=== PATIENT | female | born 1980 | race Caucasian/White ===

== ENCOUNTER 2017-09-02 16:50 | Emergency (ER) | payer MEDICAID ==
[~2017-09-02] VITALS: Ht 167.6 cm; Wt 73.5 kg
[2017-09-02 17:00] VITALS: BP_SYST 140
--- NOTE | 2017-09-02 17:05 | NUR ---
Patient to ER bed 6 to gown for evaluation. Side rails up. Report given to Jermain SAHNI.
--- NOTE | 2017-09-02 17:07 | NUR ---
ER at bedside examining patient.
--- NOTE | 2017-09-02 17:10 | NUR ---
Pt presents to ER c/o LL abd pain that began at 0400. Pt states she has experienced N/V. Pt states she has an IUD in place, has light spotting, & is 5 days late for her menstrual period when she is "usually regular". Pt denies any significant medical history or medication use. Pt is AOX4, no acute respiratory distress noted.
--- NOTE | 2017-09-02 17:15 | NUR ---
Lab at bedside drawing blood.
--- NOTE | 2017-09-02 17:20 | NUR ---
Urine collected and sent to lab. Urine Hcg done and results are neg.
[2017-09-02 17:29] LABS: BASOPHILS % (AUTO) 0.3 % (0.0-2.0); EOSINOPHILS % (AUTO) 0.3 % (0.0-4.0); HEMATOCRIT 45.7 % (36-48); HEMOGLOBIN 14.9 g/dL (12.0-16.0); LYMPHOCYTES # (AUTO) 1.7 K/uL (1.0-5.5); LYMPHOCYTES % (AUTO) 19.5 % (20.5-51.5); MEAN CORPUSCULAR HEMOGLOBIN 30 pg (27-31); MEAN CORPUSCULAR HGB CONC 33 % (32-36); MEAN CORPUSCULAR VOLUME 92 fL (79.0-98.0); MONOCYTES # (AUTO) 0.4 K/uL (0.0-1.0); MONOCYTES % (AUTO) 5.1 % (1.7-9.3); NEUTROPHILS # (AUTO) 6.6 K/uL (1.8-7.7); NEUTROPHILS % (AUTO) 74.8 % (40.0-70.0); PLATELET COUNT (AUTO) 352 K/uL (130-430); RED BLOOD CELL COUNT(AUTO) 4.97 MIL/uL (4.2-6.2); RED CELL DISTRIBUTION WIDTH 11.2 % (9.0-15.0); WHITE BLOOD COUNT (AUTO) 8.7 K/uL (4.8-10.8)
--- NOTE | 2017-09-02 17:29 | NUR ---
Patient transported to radiology via gurney, accompanied by rad staff.
[2017-09-02 17:31] LABS: BILIRUBIN,URINE 1+ (NEGATIVE); BLOOD, URINE 2+ (NEGATIVE); CLARITY/URINE SL HAZY (CLEAR); GLUCOSE,URINE NEGATIVE (NEGATIVE); KETONES,URINE 3+ (NEGATIVE); LEUKOCYTE ESTERASE ,URINE NEGATIVE (NEGATIVE); NITRITE, URINE NEGATIVE (NEGATIVE); PH,URINE 5.5 (5.0-8.0); PROTEIN URINE TRACE (NEGATIVE); UROBILINOGEN,URINE 0.2 (0.2-1.0)
[2017-09-02 17:33] LABS: COLOR,URINE YELLOW (YELLOW)
[2017-09-02 17:45] LABS: CALCIUM 9.6 mg/dL (8.4-11.0); CREATININE 0.78 mg/dL (0.55-1.30); POTASSIUM 3.4 mmol/L (3.5-5.1)
--- NOTE | 2017-09-02 17:45 | NUR ---
Returned from radiology, back to [facility].
[2017-09-02 17:50] LABS: ALBUMIN 4.8 g/dL (3.4-4.8); PROTHROMBIN TIME 10.4 SECS (9.5-12.5); TOTAL BILIRUBIN 1.3 mg/dL (0.0-1.0)
[2017-09-02 18:00] LABS: BACTERIA,URINE FEW /HPF (None Seen); RBC,URINE 0-3 /HPF (0-3); WBC,URINE 0-3 /HPF (0-3)
[2017-09-02 18:04] LABS: MUCUS,URINE 3+ /LPF (None Seen)
--- NOTE | 2017-09-02 18:10 | NUR ---
ER at bedside providing pt with update on CT results. Opportunity for questions / concerns provided. Pt verbalized understanding of condition.
[2017-09-02 18:33] VITALS: BP_SYST 140
--- NOTE | 2017-09-02 18:33 | NUR ---
Patient given written and verbal discharge instructions and verbalizes understanding. ER MD discussed with patient the results and treatment provided. Patient in stable condition. ID arm band removed. Rx of Zofran, Ibuprofen, & [place] given. Patient educated on pain management and to follow up with PMD. Pain Scale 3/10. Opportunity for questions provided and answered.
== END 2017-09-02 18:33 | disposition home or self-care (01) ==
LOC: SED 16:50
DX: R10.32 Left lower quadrant pain (principal)
CPT/HCPCS: 36415; 80053; 81000-TC; 81025; 82150-TC; 83690-TC; 84703; 85025; 85610-TC; 85730-TC; 99285

== ENCOUNTER 2017-09-17 17:34 | Emergency (ER) | payer MEDICAID ==
[~2017-09-17] VITALS: Ht 167.6 cm; Wt 73.5 kg
[2017-09-17 17:51] VITALS: BP_SYST 144
[2017-09-17 18:25] LABS: BASOPHILS % (AUTO) 0.4 % (0.0-2.0); EOSINOPHILS # (AUTO) 0.1 K/uL (0.0-0.4); EOSINOPHILS % (AUTO) 1.5 % (0.0-4.0); HEMATOCRIT 43.7 % (36-48); HEMOGLOBIN 14.6 g/dL (12.0-16.0); LYMPHOCYTES % (AUTO) 30.4 % (20.5-51.5); MEAN CORPUSCULAR HEMOGLOBIN 31 pg (27-31); MEAN CORPUSCULAR HGB CONC 33 % (32-36); MEAN CORPUSCULAR VOLUME 92 fL (79.0-98.0); MONOCYTES # (AUTO) 0.5 K/uL (0.0-1.0); MONOCYTES % (AUTO) 7.2 % (1.7-9.3); NEUTROPHILS # (AUTO) 3.9 K/uL (1.8-7.7); NEUTROPHILS % (AUTO) 60.5 % (40.0-70.0); PLATELET COUNT (AUTO) 354 K/uL (130-430); RED BLOOD CELL COUNT(AUTO) 4.78 MIL/uL (4.2-6.2); RED CELL DISTRIBUTION WIDTH 11.2 % (9.0-15.0); WHITE BLOOD COUNT (AUTO) 6.5 K/uL (4.8-10.8)
[2017-09-17 18:37] LABS: BILIRUBIN,URINE 1+ (NEGATIVE); CLARITY/URINE SL HAZY (CLEAR); COLOR,URINE YELLOW (YELLOW); GLUCOSE,URINE NEGATIVE (NEGATIVE); KETONES,URINE 1+ (NEGATIVE); LEUKOCYTE ESTERASE ,URINE NEGATIVE (NEGATIVE); NITRITE, URINE NEGATIVE (NEGATIVE); PROTEIN URINE TRACE (NEGATIVE); UROBILINOGEN,URINE 0.2 (0.2-1.0)
[2017-09-17 18:41] LABS: BLOOD, URINE TRACE (NEGATIVE)
[2017-09-17 18:45] LABS: CALCIUM 9.5 mg/dL (8.4-11.0); CREATININE 0.83 mg/dL (0.55-1.30); POTASSIUM 3.3 mmol/L (3.5-5.1)
[2017-09-17 18:50] LABS: ALBUMIN 4.5 g/dL (3.4-4.8); TOTAL BILIRUBIN 0.9 mg/dL (0.0-1.0)
[2017-09-17 19:03] LABS: BACTERIA,URINE FEW /HPF (None Seen); CALCIUM OXALATE CRYSTALS,UR 1+ /HPF (None Seen); MUCUS,URINE 2+ /LPF (None Seen); WBC,URINE 0-3 /HPF (0-3)
[2017-09-17 20:42] VITALS: BP_SYST 144
== END 2017-09-17 20:42 | disposition home or self-care (01) ==
LOC: SED 17:34
DX: R10.30 Lower abdominal pain, unspecified (principal); R74.0 Nonspecific elevation of levels of transaminase and lactic acid dehydrogenase [LDH]; R19.7 Diarrhea, unspecified; R03.0 Elevated blood-pressure reading, without diagnosis of hypertension
CPT/HCPCS: 36415; 76830-TC; 76857; 80053; 81000-TC; 81025; 83690-TC; 85025; 99285

== ENCOUNTER 2017-10-30 13:52 | Emergency (ER) | payer MEDICAID ==
[~2017-10-30] VITALS: Ht 167.6 cm; Wt 81.6 kg
[2017-10-30 13:52] VITALS: BP_SYST 158
[2017-10-30] MEDS ORDERED: DIPH-TET-PERTUS Vaccine 0.5 ML VIAL (ADACEL) I.M. ONE (14:15)
[2017-10-30] MEDS ORDERED: IBUPROFEN 800 MG TABLET PO ONE (14:15)
[2017-10-30 14:30] VITALS: BP_SYST 142
== END 2017-10-30 14:30 | disposition home or self-care (01) ==
LOC: SED 13:52
DX: Z23 Encounter for immunization (principal); R03.0 Elevated blood-pressure reading, without diagnosis of hypertension
CPT/HCPCS: 90715; 99283

== ENCOUNTER 2017-11-26 09:21 | Emergency (ER) | payer MEDICAID ==
[~2017-11-26] VITALS: Ht 167.6 cm; Wt 63.5 kg
[2017-11-26 09:21] VITALS: BP_SYST 129
[2017-11-26] MEDS ORDERED: NACL 0.9% 1,000 ML IV ONE (10:00)
[2017-11-26 10:39] LABS: BASOPHILS # (AUTO) 0.2 K/uL (0.0-0.2); BASOPHILS % (AUTO) 1.4 % (0.0-2.0); EOSINOPHILS # (AUTO) 0.1 K/uL (0.0-0.4); EOSINOPHILS % (AUTO) 0.8 % (0.0-4.0); HEMATOCRIT 43.1 % (36-48); HEMOGLOBIN 14.2 g/dL (12.0-16.0); LYMPHOCYTES # (AUTO) 1.5 K/uL (1.0-5.5); LYMPHOCYTES % (AUTO) 12.3 % (20.5-51.5); MEAN CORPUSCULAR HEMOGLOBIN 30 pg (27-31); MEAN CORPUSCULAR HGB CONC 33 % (32-36); MEAN CORPUSCULAR VOLUME 91 fL (79.0-98.0); MONOCYTES # (AUTO) 0.8 K/uL (0.0-1.0); MONOCYTES % (AUTO) 6.6 % (1.7-9.3); NEUTROPHILS # (AUTO) 9.7 K/uL (1.8-7.7); NEUTROPHILS % (AUTO) 78.9 % (40.0-70.0); PLATELET COUNT (AUTO) 154 K/uL (130-430); RED BLOOD CELL COUNT(AUTO) 4.72 MIL/uL (4.2-6.2); RED CELL DISTRIBUTION WIDTH 11.4 % (9.0-15.0); WHITE BLOOD COUNT (AUTO) 12.3 K/uL (4.8-10.8)
[2017-11-26 10:42] LABS: BILIRUBIN,URINE NEGATIVE (NEGATIVE); BLOOD, URINE NEGATIVE (NEGATIVE); CLARITY/URINE CLEAR (CLEAR); COLOR,URINE YELLOW (YELLOW); GLUCOSE,URINE NEGATIVE (NEGATIVE); KETONES,URINE NEGATIVE (NEGATIVE); LEUKOCYTE ESTERASE ,URINE NEGATIVE (NEGATIVE); NITRITE, URINE NEGATIVE (NEGATIVE); PH,URINE 8.5 (5.0-8.0); PROTEIN URINE NEGATIVE (NEGATIVE); UROBILINOGEN,URINE 0.2 (0.2-1.0)
[2017-11-26 11:00] LABS: CALCIUM 10.1 mg/dL (8.4-11.0); CREATININE 0.76 mg/dL (0.55-1.30); POTASSIUM 3.4 mmol/L (3.5-5.1)
[2017-11-26 11:12] LABS: TOTAL BILIRUBIN 0.8 mg/dL (0.0-1.0)
[2017-11-26 11:32] LABS: STREPTOCOCCUS A SCREEN (RAPID) NEGATIVE (NEGATIVE)
[2017-11-26 11:37] LABS: INFLUENZA A&B ANTIGEN SCREEN NEGATIVE FOR A & B (NEGATIVE)
[2017-11-26 12:54] VITALS: BP_SYST 125
== END 2017-11-26 12:54 | disposition home or self-care (01) ==
LOC: SED 09:21
DX: J32.9 Chronic sinusitis, unspecified (principal); B34.9 Viral infection, unspecified
CPT/HCPCS: 36415; 71045; 80053; 81003; 81025; 85025; 86403; 86710; 87081; 93005; 96360; 99285; J7030

== ENCOUNTER 2017-12-14 09:43 | Emergency (ER) | payer MEDICAID ==
[~2017-12-14] VITALS: Ht 167.6 cm; Wt 71.2 kg
[2017-12-14 09:48] VITALS: BP_SYST 138
[2017-12-14] MEDS ORDERED: ALBUTEROL SULFATE 0.083% 2.5 MG/3 ML VIAL.NEB INH ONE (10:00)
[2017-12-14] MEDS ORDERED: HYDROcodone/ACETAMIN 5-325 MG TAB (NORCO/ VICODIN) PO ONE (10:00)
[2017-12-14 11:23] VITALS: BP_SYST 138
== END 2017-12-14 11:23 | disposition home or self-care (01) ==
LOC: SED 09:43
DX: B34.9 Viral infection, unspecified (principal); R03.0 Elevated blood-pressure reading, without diagnosis of hypertension
CPT/HCPCS: 71045; 81025; 94640; 99283

== ENCOUNTER 2017-12-16 21:06 | Emergency (ER) | payer MEDICAID ==
[~2017-12-16] VITALS: Ht 167.6 cm; Wt 71.2 kg
[2017-12-16 21:12] VITALS: BP_SYST 148
[2017-12-17 03:15] VITALS: BP_SYST 142
== END 2017-12-17 03:14 | disposition home or self-care (01) ==
LOC: SED 21:06
DX: J40 Bronchitis, not specified as acute or chronic (principal)
CPT/HCPCS: 36415; 86710; 99284

== ENCOUNTER 2017-12-21 11:08 | Emergency (ER) | payer MEDICAID ==
[~2017-12-21] VITALS: Ht 167.6 cm; Wt 71.2 kg
[2017-12-21 11:14] VITALS: BP_SYST 147
[2017-12-21] MEDS ORDERED: NACL 0.9% 1,000 ML IV ONE (11:17)
[2017-12-21] MEDS ORDERED: ASPIRIN 81 MG TAB.CHEW PO ONE (11:30)
[2017-12-21 11:49] LABS: BILIRUBIN,URINE NEGATIVE (NEGATIVE); CLARITY/URINE SL HAZY (CLEAR); COLOR,URINE YELLOW (YELLOW); GLUCOSE,URINE NEGATIVE (NEGATIVE); KETONES,URINE NEGATIVE (NEGATIVE); LEUKOCYTE ESTERASE ,URINE TRACE (NEGATIVE); NITRITE, URINE NEGATIVE (NEGATIVE); PROTEIN URINE NEGATIVE (NEGATIVE); UROBILINOGEN,URINE 0.2 (0.2-1.0)
[2017-12-21 11:50] LABS: BASOPHILS % (AUTO) 0.4 % (0.0-2.0); EOSINOPHILS # (AUTO) 0.2 K/uL (0.0-0.4); EOSINOPHILS % (AUTO) 2.4 % (0.0-4.0); HEMATOCRIT 42.5 % (36-48); LYMPHOCYTES # (AUTO) 1.8 K/uL (1.0-5.5); LYMPHOCYTES % (AUTO) 23.4 % (20.5-51.5); MEAN CORPUSCULAR HEMOGLOBIN 30 pg (27-31); MEAN CORPUSCULAR HGB CONC 33 % (32-36); MEAN CORPUSCULAR VOLUME 91 fL (79.0-98.0); MONOCYTES # (AUTO) 0.4 K/uL (0.0-1.0); MONOCYTES % (AUTO) 4.9 % (1.7-9.3); NEUTROPHILS # (AUTO) 5.2 K/uL (1.8-7.7); NEUTROPHILS % (AUTO) 68.9 % (40.0-70.0); PLATELET COUNT (AUTO) 334 K/uL (130-430); RED BLOOD CELL COUNT(AUTO) 4.69 MIL/uL (4.2-6.2); RED CELL DISTRIBUTION WIDTH 11.3 % (9.0-15.0); WHITE BLOOD COUNT (AUTO) 7.6 K/uL (4.8-10.8)
[2017-12-21 11:51] LABS: BLOOD, URINE TRACE (NEGATIVE)
[2017-12-21 12:02] LABS: CALCIUM 9.6 mg/dL (8.4-11.0); CREATININE 0.83 mg/dL (0.55-1.30); POTASSIUM 3.8 mmol/L (3.5-5.1)
[2017-12-21 12:09] LABS: ALBUMIN 3.9 g/dL (3.4-4.8); TOTAL BILIRUBIN 0.4 mg/dL (0.0-1.0)
[2017-12-21] MEDS ORDERED: IPRATROPIUM BROM 0.5 MG/2.5 ML VIAL.NEB (ATROVENT) IH ONE (12:15)
[2017-12-21] MEDS ORDERED: methylPREDNISolone SOD SUCC/PF 62.5 MG/ML VIAL IVP ONE (12:15)
[2017-12-21] MEDS ORDERED: ALBUTEROL SULFATE 0.083% 2.5 MG/3 ML VIAL.NEB IH ONE (12:15)
[2017-12-21 13:06] LABS: RBC,URINE 0-3 /HPF (0-3)
[2017-12-21 13:07] LABS: BACTERIA,URINE FEW /HPF (None Seen); MUCUS,URINE 1+ /LPF (None Seen)
[2017-12-21 14:35] VITALS: BP_SYST 121
== END 2017-12-21 14:35 | disposition home or self-care (01) ==
LOC: SED 11:08
DX: J20.8 Acute bronchitis due to other specified organisms (principal); R19.7 Diarrhea, unspecified
CPT/HCPCS: 36415; 71045; 80053; 81000; 81025; 82550; 83690; 84484; 85025; 85610; 85730; 86710; 87086; 89055; 93005; 94640; 96361; 96374; 99285; J2930

== ENCOUNTER 2018-03-25 17:06 | Emergency (ER) | payer MEDICAID ==
[~2018-03-25] VITALS: Ht 167.6 cm; Wt 68.0 kg
[2018-03-25 17:11] VITALS: BP_SYST 135
[2018-03-25] MEDS ORDERED: IBUPROFEN 800 MG TABLET PO ONE (17:30)
[2018-03-25 18:23] VITALS: BP_SYST 128
== END 2018-03-25 18:23 | disposition home or self-care (01) ==
LOC: SED 17:06
DX: S63.257A Unspecified dislocation of left little finger, initial encounter (principal); R03.0 Elevated blood-pressure reading, without diagnosis of hypertension; W19.XXXA Unspecified fall, initial encounter; Y93.89 Activity, other specified; Y92.89 Other specified places as the place of occurrence of the external cause; Y99.8 Other external cause status
CPT/HCPCS: 99284

== ENCOUNTER 2018-07-10 14:39 | Emergency (ER) | payer MEDICAID ==
[~2018-07-10] VITALS: Ht 167.6 cm; Wt 61.2 kg
[2018-07-10 14:48] VITALS: BP_SYST 145
[2018-07-10] MEDS ORDERED: ONDANSETRON HCL 4 MG/2 ML VIAL IVP ONE (15:15)
[2018-07-10] MEDS ORDERED: DIPHENHYDRAMINE INJ 50 MG/ML VIAL IVP ONE (15:15)
[2018-07-10] MEDS ORDERED: NACL 0.9% 1,000 ML IV ONE (15:15)
[2018-07-10 15:43] LABS: ANION GAP 6 (5-15); CALCIUM 9.6 mg/dL (8.4-11.0); CHLORIDE 103 mmol/L (98-107); CREATININE 0.91 mg/dL (0.55-1.30); GFR AFRICAN AMERICAN 89 mL/min (>90); GLUCOSE 104 mg/dL (70-99); INR 0.9 (0.8-1.2); POTASSIUM 4.4 mmol/L (3.5-5.1); PROTHROMBIN TIME 9.6 SECS (9.5-12.5); SODIUM SERUM 136 mmol/L (136-145); UREA NITROGEN, BLOOD 8 mg/dL (8-21)
[2018-07-10 15:50] LABS: BASOPHILS % (AUTO) 0.5 % (0.0-2.0); EOSINOPHILS # (AUTO) 0.1 K/uL (0.0-0.4); EOSINOPHILS % (AUTO) 1.3 % (0.0-4.0); HEMATOCRIT 42.2 % (36-48); HEMOGLOBIN 13.7 g/dL (12.0-16.0); LYMPHOCYTES # (AUTO) 1.4 K/uL (1.0-5.5); LYMPHOCYTES % (AUTO) 15.2 % (20.5-51.5); MEAN CORPUSCULAR HEMOGLOBIN 31 pg (27-31); MEAN CORPUSCULAR HGB CONC 33 % (32-36); MEAN CORPUSCULAR VOLUME 95 fL (79.0-98.0); MONOCYTES # (AUTO) 0.8 K/uL (0.0-1.0); MONOCYTES % (AUTO) 8.1 % (1.7-9.3); NEUTROPHILS % (AUTO) 74.9 % (40.0-70.0); PLATELET COUNT (AUTO) 271 K/uL (130-430); RED BLOOD CELL COUNT(AUTO) 4.47 MIL/uL (4.2-6.2); RED CELL DISTRIBUTION WIDTH 11.6 % (9.0-15.0); WHITE BLOOD COUNT (AUTO) 9.3 K/uL (4.8-10.8)
[2018-07-10 15:59] LABS: BILIRUBIN,URINE NEGATIVE (NEGATIVE); CLARITY/URINE CLEAR (CLEAR); COLOR,URINE YELLOW (YELLOW); GLUCOSE,URINE NEGATIVE (NEGATIVE); KETONES,URINE NEGATIVE (NEGATIVE); LEUKOCYTE ESTERASE ,URINE TRACE (NEGATIVE); NITRITE, URINE NEGATIVE (NEGATIVE); PROTEIN URINE NEGATIVE (NEGATIVE); UROBILINOGEN,URINE 0.2 (0.2-1.0)
[2018-07-10 15:59] LABS: ALANINE AMINOTRANSFERASE 93 U/L (12-78); ALBUMIN 3.8 g/dL (3.4-4.8); ASPARTATE AMINOTRANSFERASE 101 U/L (10-37); FREE T4 (FREE THYROXINE) 0.7 ng/dL (0.6-1.6); TOTAL BILIRUBIN 0.5 mg/dL (0.0-1.0)
[2018-07-10 16:00] LABS: BLOOD, URINE TRACE (NEGATIVE)
[2018-07-10 16:01] LABS: ALCOHOL, BLOOD < 3 mg/dL (<10)
[2018-07-10 16:04] LABS: BACTERIA,URINE MODERATE /HPF (None Seen); MUCUS,URINE 1+ /LPF (None Seen); RBC,URINE 0-3 /HPF (0-3)
[2018-07-10 16:18] LABS: BARBITURATE, URINE NEGATIVE (NEG <=200); BENZODIAZEPINE, URINE NEGATIVE (NEG <=150); CANNABINOID, URINE POSITIVE (NEG <=50); COCAINE, URINE NEGATIVE (NEG <=150); METHAMPHETAMINES SCREEN,URINE NEGATIVE (NEG <=500); OPIATE, URINE NEGATIVE (NEG <=100); PHENCYCLIDINE SCREEN,URINE NEGATIVE (NEG <=25); UR TRICYCLIC ANTIDEPRESSANTS NEGATIVE (NEG <=300); URINE AMPHETAMINE NEGATIVE (NEG <=500); URINE METHADONE NEGATIVE (NEG <=200); URINE OXYCODONE SCREEN NEGATIVE (NEG <=100); URINE PROPOXYPHENE SCREEN NEGATIVE (NEG <=300)
[2018-07-10] MEDS ORDERED: KETOROLAC TROMETHAMINE 30 MG VIAL IVP ONE (17:00)
[2018-07-10] MEDS ORDERED: LEVOFLOXACIN 500 MG TABLET PO ONE (17:00)
[2018-07-10 17:15] VITALS: BP_SYST 132
== END 2018-07-10 17:15 | disposition home or self-care (01) ==
LOC: SED 14:39
DX: N39.0 Urinary tract infection, site not specified (principal); I10 Essential (primary) hypertension
CPT/HCPCS: 36415; 80053; 80307; 81000; 83605; 83880; 84439; 84484; 85025; 85610; 87040; 87086; 96361; 96374; 96375; 99284; G0482; J1200; J1885; J2405; J7030

== ENCOUNTER 2018-08-13 12:23 | Emergency (ER) | payer MEDICAID ==
[~2018-08-13] VITALS: Ht 167.6 cm; Wt 59.0 kg
[2018-08-13 12:28] VITALS: BP_SYST 156
--- NOTE | 2018-08-13 12:31 | NUR ---
Patient to ER bed 08 to gown for evaluation. Side rails up.
--- NOTE | 2018-08-13 12:32 | NUR ---
Pt brought by self, A&Ox4, pt presents to ER with cat scratch on vaginal area, pt states she was cleaning cat cages and she was scratched by a cat, afebrile, no bleeding noted at thi time, skin pink and warm, cap refill <3.
--- NOTE | 2018-08-13 12:40 | NUR ---
ER at bedside examining patient.
--- NOTE | 2018-08-13 12:50 | NUR ---
Dr Martinez at bedside examining patient with myself at bedside .
[2018-08-13 13:33] VITALS: BP_SYST 156
--- NOTE | 2018-08-13 13:33 | NUR ---
Patient given written and verbal discharge instructions and verbalizes understanding. ER MD discussed with patient the results and treatment provided. Patient in stable condition. ID arm band removed. Rx of CLINDAMYCIN given. Patient educated on pain management and to follow up with PMD. Pain Scale 2. Opportunity for questions provided and answered. Medication side effect fact sheet provided.
== END 2018-08-13 13:31 | disposition home or self-care (01) ==
LOC: SED 12:23
DX: A28.1 Cat-scratch disease (principal); I10 Essential (primary) hypertension
CPT/HCPCS: 99283

== ENCOUNTER 2020-09-14 06:07 | Emergency (ER) | payer MEDICAID ==
[~2020-09-14] VITALS: Ht 167.6 cm; Wt 74.8 kg
[2020-09-14 06:32] VITALS: BP_SYST 160
== END 2020-09-14 07:29 | disposition left against medical advice (07) ==
LOC: SED 06:07
DX: R06.02 Shortness of breath (principal); R06.00 Dyspnea, unspecified
CPT/HCPCS: 99281

== ENCOUNTER 2021-04-26 01:42 | Emergency (ER) | payer MEDICAID, SELFPAY ==
[~2021-04-26] VITALS: Ht 167.6 cm; Wt 65.8 kg
[2021-04-26 03:03] VITALS: BP_SYST 139
[2021-04-26] MEDS ORDERED: ONDANSETRON 4 MG ODT TAB PO ONE (03:45)
[2021-04-26] MEDS ORDERED: ONDANSETRON 4 MG ODT TAB ONE (03:49)
[2021-04-26] MEDS ORDERED: ONDA-8 TL (03:53)
[2021-04-26] MEDS ORDERED: AMOX-426 PO (03:53)
[2021-04-26] MEDS ORDERED: OXYCODONE/ACETAMINOPHEN *10*mg/325 mg TABLET PO ONE (04:00)
[2021-04-26] MEDS ORDERED: ACET1TAB23 PO (04:03)
[2021-04-26 04:20] VITALS: BP_SYST 139
== END 2021-04-26 04:20 | disposition home or self-care (01) ==
LOC: SED 01:42
DX: H73.011 Bullous myringitis, right ear (principal); Z79.899 Other long term (current) drug therapy
CPT/HCPCS: 81025; 99283; Q0162

== ENCOUNTER 2022-02-25 11:04 | Emergency (ER) | payer MEDICAID ==
[~2022-02-25] VITALS: Ht 167.6 cm; Wt 61.2 kg
[~2022-02-25 11:04] MED LIST: ACET1TAB93 PO; AMOX-426 PO; ONDA-8 TL
[2022-02-25 11:20] VITALS: BP_SYST 122
[2022-02-25 11:55] LABS: BASOPHILS % (AUTO) 0.4 % (0.0-2.0); EOSINOPHILS # (AUTO) 0.1 K/uL (0.0-0.4); EOSINOPHILS % (AUTO) 0.8 % (0.0-4.0); HEMATOCRIT 42.1 % (36-48); HEMOGLOBIN 14.4 g/dL (12.0-16.0); LYMPHOCYTES # (AUTO) 1.3 K/uL (1.0-5.5); LYMPHOCYTES % (AUTO) 21.4 % (20.5-51.5); MEAN CORPUSCULAR HEMOGLOBIN 31 pg (27-31); MEAN CORPUSCULAR HGB CONC 34 % (32-36); MEAN CORPUSCULAR VOLUME 90 fL (79.0-98.0); MONOCYTES # (AUTO) 0.4 K/uL (0.0-1.0); MONOCYTES % (AUTO) 7.1 % (1.7-9.3); NEUTROPHILS # (AUTO) 4.4 K/uL (1.8-7.7); NEUTROPHILS % (AUTO) 70.3 % (40.0-70.0); PLATELET COUNT (AUTO) 258 K/uL (130-430); RED BLOOD CELL COUNT(AUTO) 4.69 MIL/uL (4.2-6.2); RED CELL DISTRIBUTION WIDTH 13.1 % (9.0-15.0); WHITE BLOOD COUNT (AUTO) 6.3 K/uL (4.8-10.8)
[2022-02-25 12:04] LABS: ANION GAP 9 (5-15); CHLORIDE 104 mmol/L (98-107); CREATININE 0.91 mg/dL (0.55-1.30); GLUCOSE 90 mg/dL (70-99); POTASSIUM 4.7 mmol/L (3.5-5.1); SODIUM SERUM 140 mmol/L (136-145); UREA NITROGEN, BLOOD 9 mg/dL (8-21)
[2022-02-25 12:09] LABS: GFR AFRICAN AMERICAN 88 mL/min (>90)
[2022-02-25 12:13] LABS: ALANINE AMINOTRANSFERASE 94 U/L (12-78); ALBUMIN 3.8 g/dL (3.4-4.8); ASPARTATE AMINOTRANSFERASE 47 U/L (10-37); TOTAL BILIRUBIN 0.4 mg/dL (0.0-1.0)
[2022-02-25] MEDS ORDERED: IBUP-1969 PO (12:44)
[2022-02-25] MEDS ORDERED: HYDR-3917 PO (12:44)
[2022-02-25 13:05] VITALS: BP_SYST 118
== END 2022-02-25 13:05 | disposition home or self-care (01) ==
LOC: SED 11:04
DX: R07.81 Pleurodynia (principal); Z20.822 Contact with and (suspected) exposure to COVID-19
CPT/HCPCS: 36415; 71045; 80053; 84484; 84703; 85025; 93005; 99285

== ENCOUNTER 2022-06-22 08:23 | Emergency (ER) | payer MEDICAID ==
[~2022-06-22] VITALS: Ht 167.6 cm; Wt 66.2 kg
[~2022-06-22 08:23] MED LIST changes: -ACET1TAB93 PO; +HYDR-3917 PO; +IBUP-1969 PO
[2022-06-22 08:34] VITALS: BP_SYST 120
--- NOTE | 2022-06-22 08:55 | NUR ---
Patient to ER bed 02 to gown for evaluation. Side rails up. Report received from KAITLYN Mckinnon.
--- NOTE | 2022-06-22 08:57 | NUR ---
Pt came from home c/o sinus pain and congestion with burning since last night. Pt is A&Ox4, calm and cooperative. Denies f/v/d. Pt states she has a productive cough with "yellow" sputum she believes is evidence of infection. Denies use of alcohol, tobacco. VSS, in no acute distress. Lying on gurney with daughter at this time. Will provide care as ordered.
--- NOTE | 2022-06-22 09:45 | NUR ---
ER DR. CHAPA EXAMINING PT
[2022-06-22] MEDS ORDERED: IBUPROFEN 600 MG TABLET PO ONE (10:00)
[2022-06-22] MEDS ORDERED: IBUP-1969 PO (10:28)
[2022-06-22 10:37] LABS: STREPTOCOCCUS A SCREEN (RAPID) NEGATIVE (NEGATIVE)
[2022-06-22 11:13] VITALS: BP_SYST 120
--- NOTE | 2022-06-22 11:14 | NUR ---
Patient given written and verbal discharge instructions and verbalizes understanding. ER MD discussed with patient the results and treatment provided. Patient in stable condition. ID arm band removed. NO Rx given. Patient educated on pain management and to follow up with PMD. Pain Scale 0/10. Opportunity for questions provided and answered. Medication side effect fact sheet provided. Addendum: 06/22/22 at 1117 by [email or web address] Patient given written and verbal discharge instructions and verbalizes understanding. ER MD discussed with patient the results and treatment provided. Patient in stable condition. ID arm band removed. Rx OF IBUPROFEN given. Patient educated on pain management and to follow up with PMD. Pain Scale 0/10. Opportunity for questions provided and answered. Medication side effect fact sheet provided.
== END 2022-06-22 11:14 | disposition home or self-care (01) ==
LOC: SED 08:23
DX: B30.2 Viral pharyngoconjunctivitis (principal); R05.9 Cough, unspecified; R09.81 Nasal congestion; Z79.899 Other long term (current) drug therapy; Z20.822 Contact with and (suspected) exposure to COVID-19
CPT/HCPCS: 36415; 86403; 87081; 99283